=== PATIENT | male | born 1995 | race African-American/Black ===

== ENCOUNTER 2016-08-18 14:10 | Emergency (ER) | payer MEDICAID, OTHER ==
[~2016-08-18] VITALS: Wt 66.5 kg
[~2016-08-18 14:10] MED LIST: ACET500C5 PO; AMO500 PO; IBUP-1542 PO; IBUP800T25 PO
[2016-08-18] MEDS ORDERED: IBUPROFEN 600 MG TAB PO ONE (16:30)
--- NOTE | 2016-08-18 16:39 | RADRPT ---
PROCEDURE: XR Wrist. CLINICAL INDICATION: pain TECHNIQUE: AP, lateral and oblique views of the left wrist were performed. COMPARISON: No prior studies are available for comparison. FINDINGS: There is no evidence of acute fracture. No evidence of dislocation or subluxation. The bones appear well mineralized. The joint spaces are well preserved. The soft tissues are normal. RPTAT: AA IMPRESSION: Unremarkable exam of the left wrist. .Ryan Strickland MD, MD Date Time Electronically viewed and signed by .Ryan Strickland MD, on 08/18/2016 16:39 .S/
[2016-08-18] MEDS ORDERED: IBUP-1542 PO (16:41)
--- NOTE | 2016-08-18 16:42 | ERD ---
ER Documentation Chief Complaint Date/Time DATE: 08/18/16 TIME: 16:41 Chief Complaint LEFT WRIST PAIN FROM FALLING FROM SKATEBOARD. NO DEFORMITY HPI 20-year-old man complains of left wrist pain 2 days after falling off his skateboard yesterday. He denies head or neck injury after the fall, denies paresis or paresthesias, no chest pain or shortness of breath. ROS All systems reviewed and are negative except as per history of present illness. Medications Home Meds Active Scripts Ibuprofen* (Motrin*) 600 Mg Tab, 600 MG PO Q8 for PAIN AND/OR INFLAMMATION, #30 TAB Prov:NONA ROWE MD 08/18/16 Acetaminophen* (Tylophen*) 500 Mg Capsule, 1 CAP PO Q6H Y for PAIN AND OR ELEVATED TEMP, #30 CAP Prov:LATISHA REYES PA-C 07/11/16 Ibuprofen* (Motrin*) 800 Mg Tab, 800 MG PO Q6, #30 TAB Prov:LATISHA REYES PA-C 07/11/16 Amoxicillin* (Amoxicillin*) 500 Mg Cap, 500 MG PO TID for 10 Days, CAP Prov:LATISHA REYES PA-C 07/11/16 Ibuprofen* (Motrin*) 600 Mg Tab, 600 MG PO Q6, #30 TAB Prov:NASEEM VALLES PA-C 03/11/15 Allergies Allergies: Coded Allergies: No Known Allergy (Unverified , 09/26/15) PMhx/Soc None History of Surgery: Yes (RIGHT KNEE SURGERY ) Anesthesia Reaction: No Hx Neurological Disorder: No Hx Respiratory Disorders: No Hx Cardiac Disorders: No Hx Psychiatric Problems: No Hx Miscellaneous Medical Probl: No Hx Alcohol Use: No Hx Substance Use: No Hx Tobacco Use: No FmHx Family History: No diabetes Physical Exam Vitals Vital Signs Date Time Temp Pulse Resp B/P Pulse Ox O2 Delivery O2 Flow Rate FiO2 08/18/16 14:16 97.5 71 20 117/68 100 Physical Exam GENERAL: Well-developed, well-nourished, well-hydrated, in no apparent distress , looks nontoxic in appearance HEENT: Moist mucous membranes, pink conjunctiva, no cervical spine tenderness or step-off deformities, no goiter, no jaundice or icterus, extraocular movements intact without pain. No submandibular induration, and no pharyngeal erythema NEURO: Alert and oriented 3, cranial nerves II through XII intact bilaterally, pupils equal round reactive to light, no focal deficits or facial asymmetry, sensation intact distally Strength 5/5 in upper and lower extremities bilaterally CARDIAC: Regular rate and rhythm, no murmurs rubs or gallops LUNGS: Clear bilaterally no wheezing crackles or stridor ABDOMEN: Soft nontender, no guarding, no rigidity, no rebound, no psoas sign no obturator sign. Normoactive bowel sounds SKIN: Warm and dry to touch, mild soft tissue contusion to the dorsal aspect of the left wrist, no snuffbox tenderness to touch, and without ulcers EXTREMITIES: No clubbing cyanosis or edema, calves are bilaterally symmetrical, no Homans sign, no popliteal cord sign. Distal pulses equal and bilateral. No bony tenderness noted although there is reduced range of motion secondary to pain and soft tissue swelling, PSYCH: Normal affect without agitation or irritability Results 24 hrs Current Medications Medications (Trade) Dose Ordered Sig/Mitesh Route PRN Reason Start Time Stop Time Status Last Admin Dose Admin Ibuprofen (Motrin) 600 mg ONCE ONCE PO 08/18/16 16:30 08/18/16 16:31 DC 08/18/16 16:24 Procedures/MDM X-ray left wrist 3V Interpreted by me: Scaphoid: Normal Bones: No fracture Joints: No dislocation Foreign body: None I placed the patient in a Velcro wrist splint for comfort and supportive measures. Splint Assessment: Neurovascularly intact post splint placement with good fit. Patient feels much better at this time, and vital signs are normal, symptoms have improved. I did give strict instructions to return to the ED if symptoms continue or worsen, patient will otherwise follow-up with primary care physician. Patient understood instructions and agreed to plan. Departure Diagnosis: Primary Impression: Wrist sprain Encounter type: initial encounter Laterality: left Qualified Code: S63.502A - Wrist sprain, left, initial encounter Condition: Good Patient Instructions: Wrist Sprain NONA ROWE MD Aug 18, 2016 16:42
== END 2016-08-18 16:55 | disposition home or self-care (01) ==
LOC: FTE 14:10
DX: S63.502A Unspecified sprain of left wrist, initial encounter (principal); V00.131A Fall from skateboard, initial encounter; Y92.9 Unspecified place or not applicable
CPT/HCPCS: 29125; 73110; Z7610

== ENCOUNTER 2017-01-14 11:52 | Emergency (ER) | payer OTHER ==
[~2017-01-14] VITALS: Ht 185.4 cm; Wt 64.0 kg
[2017-01-14 11:56] VITALS: Ht 185.4 cm; Wt 64.0 kg
[2017-01-14] MEDS ORDERED: IBUPROFEN 600 MG TAB PO ONE (12:30)
[2017-01-14] MEDS ORDERED: CEPHALEXIN 500 MG CAP PO ONE (12:30)
[2017-01-14] MEDS ORDERED: DIPHTH/TET/ACEL PERTUSS (ADULT) 0.5 ML VIAL IM* ONE (12:30)
--- NOTE | 2017-01-14 14:14 | RADRPT ---
PROCEDURE: XR Knee. CLINICAL INDICATION: Knee pain TECHNIQUE: Three views of the right knee are available for review. COMPARISON: 03/11/2015 FINDINGS: The patient has undergone interval ACL reconstruction with presence of femoral and tibial osseous tu nnels. The femoral tunnel is approximately at the 11 o'clock position. There is a area of contour regularity with overlying small ossicles at the lateral femoral condyle, likely area of prior impact ion injury. Possibly intra-articular bodies. No acute osseous abnormality is suspected. Mild margin al spurring is seen at all 3 compartments. Small joint effusion is present. IMPRESSION: 1. Evidence of interval ACL reconstruction. 2. Contour defect of the lateral femoral condyle, likely from prior impaction injury. 3. Joint effusion and probable small intrarticular bodies. RPTAT: RR .Felton Mayorga MD, MD Date Time Electronically viewed and signed by .Felton Mayorga MD, MD on 01/14/2017 14:14 .d/
[2017-01-14] MEDS ORDERED: CEPH-443 PO (14:40)
[2017-01-14] MEDS ORDERED: SULF1TAB31 PO (14:41)
[2017-01-14] MEDS ORDERED: IBUP-1542 PO (14:43)
--- NOTE | 2017-01-14 14:51 | ERD ---
ER Documentation Chief Complaint Date/Time DATE: 01/14/17 TIME: 14:46 Chief Complaint BIB SELF C/O LIP LACERATION 2 DAYS AGO S/P SKATE BOARDING. UNKNOWN TETANUS HPI Patient is a 21-year-old male with PMHx of R ACL repair who presents to the emergency department for concerns of a lip laceration that occurred 3 days ago while he was riding his skateboard. Patient also reports abrasions to his right knee. Patient states he was riding his skateboard when he fell down and caught his fall on his R knee. Patient denies any head injury or head trauma. Patient denies any nausea, vomiting, blurry vision, headache or loss consciousness. Patient recalls all events of the injury. Patient denies any neck pain or back pain. Patient does not recall his last tetanus vaccination. Patient is speaking in full sentences. ROS All systems reviewed and are negative except as per history of present illness. Medications Home Meds Active Scripts Ibuprofen* (Motrin*) 600 Mg Tab, 600 MG PO Q6, #30 TAB Prov:LUCINA PABLO PA-C 01/14/17 Sulfamethoxazole/Trimethoprim* (Bactrim Ds* Tablet) 1 Each Tablet, 1 TAB PO BID , #20 TAB Prov:LUCINA PABLO PA-C 01/14/17 Cephalexin* (Keflex*) 500 Mg Capsule, 500 MG PO QID for 10 Days, CAP Prov:LUCINA PABLO PA-C 01/14/17 Ibuprofen* (Motrin*) 600 Mg Tab, 600 MG PO Q8 for PAIN AND/OR INFLAMMATION, #30 TAB Prov:NONA ROWE MD 08/18/16 Acetaminophen* (Tylophen*) 500 Mg Capsule, 1 CAP PO Q6H Y for PAIN AND OR ELEVATED TEMP, #30 CAP Prov:LATISHA REYES PA-C 07/11/16 Ibuprofen* (Motrin*) 800 Mg Tab, 800 MG PO Q6, #30 TAB Prov:LATISHA REYES PA-C 07/11/16 Amoxicillin* (Amoxicillin*) 500 Mg Cap, 500 MG PO TID for 10 Days, CAP Prov:LATISHA REYES PA-C 07/11/16 Ibuprofen* (Motrin*) 600 Mg Tab, 600 MG PO Q6, #30 TAB Prov:NASEEM VALLES Elena BERMEO 03/11/15 Allergies Allergies: Coded Allergies: No Known Allergy (Unverified , 09/26/15) PMhx/Soc History of Surgery: Yes (RIGHT KNEE SURGERY ) Anesthesia Reaction: No Hx Neurological Disorder: No Hx Respiratory Disorders: No Hx Cardiac Disorders: No Hx Psychiatric Problems: No Hx Miscellaneous Medical Probl: No Hx Alcohol Use: No Hx Substance Use: No Hx Tobacco Use: No Physical Exam Vitals Vital Signs Date Time Temp Pulse Resp B/P Pulse Ox O2 Delivery O2 Flow Rate FiO2 01/14/17 11:56 98.8 64 18 114/63 98 Physical Exam GENERAL: Well-developed, well-nourished male. Appears in no acute distress. HEAD: Normocephalic, atraumatic. No ecchymosis of bilateral mastoid process. EYES: Pupils are equally reactive bilaterally. EOMs grossly intact. No conjunctival erythema. No periorbital ecchymosis. ENT: Moist mucous membranes. No uvula deviation. No kissing tonsils. No trismus. Right upper lip: + swelling and scabbing noted on external and internal lip regions. +Discharge noted from wound on R external lip. NECK: Supple. No meningismus. Normal range of motion of the neck. No cervical spine tenderness. LUNG: Clear to auscultation bilaterally. No rhonchi, wheezing, rales or coarse breath sounds. HEART: Regular rate and rhythm. No murmurs, rubs or gallops. BACK: No midline tenderness. EXTREMITIES: Equal pulses bilaterally. No peripheral clubbing, cyanosis or edema. No unilateral leg swelling. NEUROLOGIC: Alert and oriented. Moving all four extremities without any difficulty. Normal speech. Steady gait. SKIN: Normal color. Warm and dry. No rashes or lesions. RIGHT KNEE: Slight swelling noted. Numerous superficial abrasions noted to the anterior right knee. Decreased range of motion secondary to slight swelling. Patient is able to bear weight to the affected extremity. Nontender palpation of the tibia-fibula, femur. Sensation intact to light touch. Neurovascularly intact. (Able to plantarflex, dorsiflex, madison foot, invert foot, raise big toe. ) 2+ DP and DT pulses. Results 24 hrs Current Medications Medications (Trade) Dose Ordered Sig/Mitesh Route PRN Reason Start Time Stop Time Status Last Admin Dose Admin Ibuprofen (Motrin) 600 mg ONCE ONCE PO 01/14/17 12:30 01/14/17 12:32 DC 01/14/17 12:46 Diphtheria/ Tetanus/Acell Pertussis (Adacel) 0.5 ml ONCE ONCE IM* 01/14/17 12:30 01/14/17 12:32 DC Cephalexin (Keflex) 500 mg ONCE ONCE PO 01/14/17 12:30 01/14/17 12:32 DC 01/14/17 12:46 Procedures/MDM ED COURSE: The patient was stable throughout ED course. I kept the patient and/or family informed of laboratory and diagnostic imaging results throughout the ED course. DIAGNOSTIC IMAGING: Read by radiologist. DIAGNOSTIC IMAGING REPORT Patient: JOSIAS HUNTLEY : 1995 Age: 21 Sex: M MR #: [id number] DOS: 01/14/17 1335 Ordering MD: LUCINA PABLO PA-C Location: [facility] Room/Bed: PROCEDURE: XR Knee. CLINICAL INDICATION: Knee pain TECHNIQUE: Three views of the right knee are available for review. COMPARISON: 03/11/2015 FINDINGS: The patient has undergone interval ACL reconstruction with presence of femoral and tibial osseous tunnels. The femoral tunnel is approximately at the 11 o' clock position. There is a area of contour regularity with overlying small ossicles at the lateral femoral condyle, likely area of prior impaction injury. Possibly intra-articular bodies. No acute osseous abnormality is suspected. Mild marginal spurring is seen at all 3 compartments. Small joint effusion is present. IMPRESSION: 1. Evidence of interval ACL reconstruction. 2. Contour defect of the lateral femoral condyle, likely from prior impaction injury. 3. Joint effusion and probable small intrarticular bodies. RPTAT: RR .Felton Mayorga MD, MD Date Time Electronically viewed and signed by .Felton Mayorga MD, MD on 01/14/2017 14:14 .d/ CC: LUCINA PABLO PA-C PROCEDURES: None. MEDICATIONS GIVEN: Tetanus Patient tolerated medication well with no adverse reactions. Patient reported improvement in pain. MEDICAL DECISION MAKING: This is a 21 year old male who presents with lip abrasions/lacerations and R knee pain after falling off his skateboard 3 days ago. Vital signs were reviewed. Patient was afebrile. Patient's upper lip was swollen and have some discharge being expressed from wounds. Patients lip was cleansed by lubrication technician. Patient's knee also cleansed and dressed by lubrication technician. Xrays of R knee showed Evidence of interval ACL reconstruction. Contour defect of the lateral femoral condyle, likely from prior impaction injury. Joint effusion and probable small intrarticular bodies. Patient was offered in the immobilizer in the ED however he declined. Patient states he had crutches and a knee immobilizer in the car. I advised patient to place knee immobilizer as soon as possible. Given these findings, the patient's presentation is most consistent with infected lip laceration and R knee pain. I have a much lower clinical concern for femur fracture, patella fracture, tibial plateau fracture, septic joint, gout, popliteal cyst, patellar tendinitis, [place]-Sch[place] disease, osteoarthritis, osteomyelitis, DVT or compartment syndrome. At this time, unable to rule out any tendon or ligament injuries. Patient will need an MRI of an outpatient basis. Low suspicion for deep space infection or patient requiring IV antibiotics at this time. Patient will be discharged home with prescription of PO antibiotics. Patient advised to return in 2 days for wound recheck. Patient understands and agrees with this plan. PRESCRIPTIONS: Ibuprofen, Keflex, Bactrim DISCHARGE: At this time, patient is stable for discharge and outpatient management. RICE therapy and ROM exercises were advised to avoid stiffness. I have instructed the patient to follow-up with his/her primary care physician in 1-2 days. I have discussed with the patient the possibility of needing to see an discharge specialist for further workup and imaging if the pain persists. I have instructed the patient to promptly return to the ER for any new or worsening symptoms including increased pain, swelling, redness, warmth or fever. The patient and/or family expressed understanding of and agreement with this plan. All questions were answered. Home care instructions were provided. Departure Diagnosis: Primary Impression: Abrasion of right knee Encounter type: initial encounter Qualified Code: S80.211A - Abrasion of right knee, initial encounter Additional Impression: Infected lip laceration Encounter type: initial encounter Qualified Code: S01.511A - Infected lip laceration, initial encounter Condition: Stable Patient Instructions: Knee Pain, Uncertain Cause, Laceration, Infected (Not Sutured) Referrals: [facility] YOU HAVE RECEIVED A MEDICAL SCREENING EXAM AND THE RESULTS INDICATE THAT YOU DO NOT HAVE A CONDITION THAT REQUIRES URGENT TREATMENT IN THE EMERGENCY DEPARTMENT. FURTHER EVALUATION AND TREATMENT OF YOUR CONDITION CAN WAIT UNTIL YOU ARE SEEN IN YOUR DOCTORS OFFICE WITHIN THE NEXT 1-2 DAYS. IT IS YOUR RESPONSIBILITY TO MAKE AN APPOINTMENT FOR FOLOW-UP CARE. IF YOU HAVE A PRIMARY DOCTOR --you should call your primary doctor and schedule an appointment IF YOU DO NOT HAVE A PRIMARY DOCTOR YOU CAN CALL OUR PHYSICIAN REFERRAL HOTLINE AT IF YOU CAN NOT AFFORD TO SEE A PHYSICIAN YOU CAN CHOSE FROM THE FOLLOWING [facility] [address] [facility] [address] [facility] [facility] [address] [facility] [address] [facility] [address] [facility] [employer] [address] [facility]. [facility] YOU HAVE RECEIVED A MEDICAL SCREENING EXAM AND THE RESULTS INDICATE THAT YOU DO NOT HAVE A CONDITION THAT REQUIRES URGENT TREATMENT IN THE EMERGENCY DEPARTMENT. FURTHER EVALUATION AND TREATMENT OF YOUR CONDITION CAN WAIT UNTIL YOU ARE SEEN IN YOUR DOCTORS OFFICE WITHIN THE NEXT 1-2 DAYS. IT IS YOUR RESPONSIBILITY TO MAKE AN APPOINTMENT FOR FOLOW-UP CARE. IF YOU HAVE A PRIMARY DOCTOR --you should call your primary doctor and schedule and appointment IF YOU DO NOT HAVE A PRIMARY DOCTOR YOU CAN CALL OUR PHYSICIAN REFERRAL HOTLINE AT . IF YOU CAN NOT AFFORD TO SEE A PHYSICIAN YOU CAN CHOSE FROM THE FOLLOWING [facility] INSTITUTIONS: [facility] [address] [place] [address] [facility] [address] [place] [address] [facility] [address] [place] [address] [facility] Hours: Thu-Thu 9:00 AM - 5:00 PM Additional Instructions: Return in 2 days for wound recheck of your lip. Complete full course of antibiotics. Return sooner for any new or worsening symptoms including but not limited to pain, swelling, redness, fever, chills. Follow-up with discharge specialist for further management of your knee pain. See referral information. Unable to rule out any ligament or tendon injuries at this time. Call your primary care doctor TOMORROW for an appointment during the next 1-2 days.See the doctor sooner or return here if your condition worsens before your appointment time. LUCINA PABLO PA-C Jan 14, 2017 14:51 antibiotics. Return sooner for any new or worsening symptoms including but not limited to pain, swelling, redness, fever, chills. Follow-up with discharge specialist for further management of your knee pain. See referral information. Unable to rule out any ligament or tendon injuries at this time. Call your primary care doctor TOMORROW for an appointment during the next 1-2 days.See the doctor sooner or return here if your condition worsens before your appointment time. LUCINA PABLO PA-C Jan 14, 2017 14:51
== END 2017-01-14 15:07 | disposition home or self-care (01) ==
LOC: FTE 11:52
DX: S80.211A Abrasion, right knee, initial encounter (principal); V00.131A Fall from skateboard, initial encounter; Y92.9 Unspecified place or not applicable
CPT/HCPCS: 29505; 73562; 90715; Z7502; Z7610

== ENCOUNTER 2018-03-27 01:15 | Emergency (ER) | END 2018-03-27 02:54 | disposition home or self-care (01) ==